=== PATIENT | female | born 1980 | race Two or more races ===

== ENCOUNTER 2019-05-30 00:17 | Emergency (ER) | payer SELFPAY ==
[~2019-05-30] VITALS: Ht 154.9 cm; Wt 63.5 kg
[2019-05-30] MEDS ORDERED: SUMAtriptan SUCCINATE 6 MG/0.5 ML VL SC ONE (04:15)
[2019-05-30] MEDS ORDERED: IBUPROFEN 800 MG TAB PO ONE (04:15)
[2019-05-30 04:34] VITALS: BP 120/75
== END 2019-05-30 04:50 | disposition home or self-care (01) ==
LOC: ER 00:17
DX: G43.909 Migraine, unspecified, not intractable, without status migrainosus (principal)
CPT/HCPCS: 70450; 96372; 99284; J3030